=== PATIENT | male | born 1955 | race Caucasian/White ===

== ENCOUNTER 2020-06-17 17:29 | Emergency (ER) | payer OTHER ==
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
[2020-06-17 22:14] VITALS: BP 143/82; TEMP 99; O2SAT 96
== END 2020-06-17 22:02 | disposition home or self-care (01) ==
LOC: ER 17:29
DX: S20.219A Contusion of unspecified front wall of thorax, initial encounter (principal); V49.40XA Driver injured in collision with unspecified motor vehicles in traffic accident, initial encounter; I48.91 Unspecified atrial fibrillation
CPT/HCPCS: 82565; 70450; 72125; 71260; 74177; Q9967; 99284